=== PATIENT | male | born 1975 | race African-American/Black ===

== ENCOUNTER 2016-07-15 19:58 | Emergency (ER) | payer SELFPAY ==
[2016-07-15 20:48] VITALS: BP 122/74
[2016-07-15] MEDS ORDERED: PENICILLIN V POTASSIUM 500 MG TABLET PO ONE (21:04)
[2016-07-15] MEDS ORDERED: HYDROCODONE/ACETAMINOPHEN 5-325 MG 6 TAB/DSPK PO PRN (21:05)
--- NOTE | 2016-07-15 21:07 | ER Document Report ---
HPI - HPI Patient complains to provider of: jaw pain Context: Patient is a 41-year-old male that comes emergency department for chief complaint of pain to his right jaw starting on the right lower side and radiating up toward his right ear. Patient denies injury, symptoms started today, patient took aspirin without relief. Patient denies any history of the same, denies any daily medications. Denies any past medical history. Past Medical History - General Information source: Patient - Social History Smoking Status: Never Smoker Frequency of alcohol use: None Drug Abuse: None Lives with: Family Family History: Reviewed & Not Pertinent - Medical History Medical History: Negative Surgical Hx: Negative - Immunizations Immunizations up to date: Yes Hx Diphtheria, Pertussis, Tetanus Vaccination: Yes Vertical Provider Document - CONSTITUTIONAL General Appearance: WD/WN, No Apparent Distress - HEENT HEENT: Atraumatic, Normocephalic. negative: Normal ENT Exam - Tenderness over the right lower gumline and posterior molar, questionable dental caries, normal pharynx and oral exam otherwise, Pharyngeal Exudate, Pharyngeal Tenderness, Pharyngeal Erythema, Tympanic Membrane Red, Tympanic Membrane Bulging Mouth Diagram: 1 - Erythematous gumline, tender over the tooth, questionable caries, no drainable abscess, no other abnormality noted - NECK Neck: Normal Inspection - RESPIRATORY Respiratory: Breath Sounds Normal, No Respiratory Distress O2 Sat by Pulse Oximetry: 97 - CARDIOVASCULAR Cardiovascular: Regular Rate, Regular Rhythm - GI/ABDOMEN Gastrointestinal: Abdomen Soft, Abdomen Non-Tender - MUSCULOSKELETAL/EXTREMETIES Musculoskeletal/Extremeties: MAEW, FROM, Non-Tender - NEURO Level of Consciousness: Awake, Alert, Appropriate Motor/Sensory: No Motor Deficit, No Sensory Deficit - DERM Integumentary: Warm, Dry, No Rash Course - Re-evaluation Re-evalutation: Patient provided with [facility] list - Vital Signs Vital signs: Temp Pulse Resp BP Pulse Ox 98.3 F 84 18 122/74 97 07/15/16 20:46 07/15/16 20:46 07/15/16 20:46 07/15/16 20:46 07/15/16 20:46 Discharge - Discharge Clinical Impression: Pain, dental Condition: Stable Disposition: HOME, SELF-CARE Additional Instructions: Take antibiotics as prescribed. Take the pain medication if needed. Follow-up with the dentist for management to prevent this from continuing to happen or worsen. Return to emergency department for any concerning worsening symptoms including swelling of the face or neck. Prescriptions: Hydrocodone/Acetaminophen [Diana 5-325 mg Tablet] 1 - 2 tab PO ASDIR #15 tablet Penicillin V Potassium [Penicillin Vk 500 mg Tablet] 500 mg PO BID #20 tablet
== END 2016-07-15 21:17 | disposition home or self-care (01) ==
LOC: ER 19:58
DX: K08.89 Other specified disorders of teeth and supporting structures (principal); R68.84 Jaw pain
CPT/HCPCS: 99282